=== PATIENT | female | born 1945 | race Caucasian/White ===

== ENCOUNTER → 2020-12-21 | Outpatient (CLI) | payer MEDICARE, OTHER ==
[~2020-12-21] MED LIST: ACETAMINOPHEN-1 EAC1 PO; ACETAMINOPHEN-1 EAC2; ACETAMINOPHEN-1 EAC2 PO; ASPIR 8181 MG PO; CARAFATE 1 GM TA1 GM PO; CARVEDILOL6.25 MG PO; DESYREL50 MG PO; HYDROCHLOROTHIA25 M1 PO; LIPITOR 10 MG10 M1 PO; LISINOPRIL2.5 M1 PO; LYRICA 50 MG50 MG PO; NEURONTIN300 MG PO; OMEPRAZOLE20 M2 PO; PRILOSEC20 MG PO; PRILOSEC40 MG PO; PROLOPRIM100 MG; TRAZODONE HCL50 MG PO; ZANTAC 150MG T150 MG PO; ZYRTEC10 M2 PO
== END ==
LOC: M.RAD 08:39 → M.ULTRA 13:00 → M.RAD 13:10
DX: R92.8 Other abnormal and inconclusive findings on diagnostic imaging of breast (principal)

== ENCOUNTER → 2020-12-26 | Outpatient (CLI) | payer MEDICARE, OTHER ==
[2020-12-26 13:46] LABS: CREATININE 0.9 mg/dL (0.6-1.3)
== END ==
LOC: M.ULTRA 12:57 → M.LAB 12:57 → M.MRI 14:30
DX: R22.32 Localized swelling, mass and lump, left upper limb (principal)